=== PATIENT | male | born 1980 | race Caucasian/White ===

== ENCOUNTER 2017-01-16 12:04 | Observation (INO) ==
--- NOTE | 2017-01-16 12:31 | EKG Report ---
Stationary ECG Study [facility] ER Test Date: 01/16/2017 12:16:33 PM Pat Name: ARNAV OH Department: Room: Gender: M Rn Tele: TRAVIS : 1980 Requested by: Curly Jones Order Number: [id number] Reading MD: MARIALUISA CORDERO Intervals [place] Rate: 48 P: 6 IN: 124 QRS: 34 QRSD: 84 T: 38 QT: 425 QTc: 391 Interpretive Statements SINUS BRADYCARDIA Electronically Signed On 01-17-17 16:09:03 CDT by MARIALUISA CORDERO [id number]
--- NOTE | 2017-01-16 12:57 | Emergency Department Note ---
Nancy Gaston Mantricia, am scribing for, and in the presence of, Curly Penaloza MD 12:31. Ca Gaston James D, MD, personally performed the services described in this documentation, ascribed by Nhan Cruz in my presence, and it is both accurate and complete [id number] . Arrival - Arrival Chief Complaint: Chest Pain Stated Complaint: chest pain ED Nursing Triage Note: Transfer from [facility] for further evaluation chest pain. c/o mid-sternal chest pain onset 0400am. Describes as dull. + shortness of breath. +dizziness. Mode of Arrival: Stretcher Limitations: No Limitations Source: Patient Time Seen by Provider: 01/16/17 12:29 - History of Present Illness HPI Narrative: Pt is a 36 y/o white male arriving to ED by EMS as a transfer from [place] with c/o chest pain that onset 0400 this morning. He states that the pain does radiate down his LUE and woke him up from his sleep. Pt has a PMHx of HTN and has a FHx of heart problems. At time of exam, pt states that he is not in pain. No other complaints were reported to ED. Onset (ago): hour(s) Consistency: constant Severity: mild Allergies/Adverse Reactions: Allergies Allergy/AdvReac Type Severity Reaction Status Date / Time No Known Allergies Allergy Verified 01/16/17 12:14 Home Medications: Home Medications Medication Instructions Recorded Confirmed Type Atorvastatin [Lipitor] 10 mg PO DAILY 01/16/17 01/16/17 History Gabapentin [Neurontin] 800 mg PO TID 01/16/17 01/16/17 History Hydrocodone/Acetaminophen [[place] 1 each PO BID PRN 01/16/17 01/16/17 History 10-325 Tablet] Lisinopril 10 mg PO DAILY 01/16/17 01/16/17 History Omeprazole 40 mg PO DAILY 01/16/17 01/16/17 History Review of System - Review of System 12 point system: reviewed and no additional remarkable complaints except as stated - Review of System Constitutional: Absent: chills, diaphoresis, fever Eyes: Absent: pain Respiratory: Absent: cough Cardiovascular: Present: chest pain Gastrointestinal: Absent: abdominal pain, nausea, vomiting, diarrhea Medical,Surgical,& Family Hx - Medical History Cardio: History of: CAD, Hypertension Neurology: History of: Cerebrovascular Accident, Peripheral Neuropathy Endocrine: History of: Dyslipidemia Musculoskeletal: History of: Back/Neck Problems - Surgical History Cardiac Surgeries: Sugical HX of: Cardiac Catheterization ([address] Galindo[address] - Social History Smoking Status: Never smoker Frequency of Alcohol Use: None Type of Drug Use: None Exam Physical Examination: ADULT: GENERAL: This is a well-nourished, well-developed male in no apparent distress. VITAL SIGNS: HEENT: Head is normocephalic and atraumatic. Pupils are equally round and reactive to light. Extraocular movement are intact. Oropharynx is benign with moist mucous membranes. NECK: Neck is soft and supple without tenderness. There are no masses. There is no lymphadenopathy. LUNGS: Lungs are clear to auscultation bilaterally. Chest rises symmetrically. There is no chest wall tenderness. CV: Heart is slow rate regular rhythm without murmurs rubs or gallops. ABDOMEN: Abdomen is soft, non-tender to palpation. There are no abnormal masses palpated. There is no organomegaly. Bowel sounds are present and active. SKIN: Skin is warm and dry. No rash. EXTREMITIES: Patient has full range of motion without tenderness. There is no pedal edema. NEUROLOGIC: Awake, alert, and oriented x4. Cranial nerves II through XII are grossly intact. There are no motorsensory deficits. PSYCHIATRIC: Normal affect. Normal mood. Vital Signs: Vital Signs Temperature 97.5 F L 01/16/17 12:49 Pulse Rate 63 01/16/17 12:49 Respiratory Rate 18 01/16/17 12:49 Blood Pressure 129/68 01/16/17 12:49 O2 Sat by Pulse Oximetry 97 01/16/17 12:04 Course - Consultations Consultation #1: Discussed with Hospitalist and patient will be admitted to their services. Time: 12:40 Results - Labs Lab Results: I have reviewed the patients labs Labs: Lab performed at [facility] and reviewed by me: Troponin less than 0.03 CBC: WBCs 9700, hemoglobin 15.2, hematocrit 44.4, platelet count 199,000 Chemistry: Sodium 144, potassium 4.1, chloride 105, CO2 28, BUN 13, creatinine 0.9, glucose 107, total bilirubin 0.5, total protein 7.1, albumin 4.0, ALT 34, AST 23, alk phos 78 - EKG EKG results: interpreted by ERMD - Impressions EKG: Sinus bradycardia with a rate of 48, normal ST-T waves, normal axis. - Diagnostic Findings Procedure: Chest x-ray: report reviewed by me (Chest x-ray performed that [facility] and read by Dr. Maxwell: Borderline heart size with mild right infrahilar atelectasis.) Disposition Clinical Impression: Chest pain Case discussed with: patient Disposition: Still a Patient Condition: Stable Time of Disposition: 12:55
[2017-01-16] MEDS ORDERED: ACETAMINOPHEN 500 MG TABLET PO STA (13:42)
[2017-01-16] MEDS ORDERED: ACETAMINOPHEN 500 MG TABLET ONE (13:44)
--- NOTE | 2017-01-16 15:16 | Hospitalist History & Physical ---
<Chino Montemayor - Last Filed: 01/16/17 15:29> Assessment and Plan (1) Chest pain Status: Acute Assessment and plan: Admit inpatient observation. Cardiac monitoring. Routine vitals. Serial EKGs and troponins. Stat chest x-ray. CBC/CMP. PT/INR. BNP. Repeat labs in am. Consult cardiology. Current Visit: Yes (2) Hypertension Status: Chronic Assessment and plan: Patient currently stable now; restart home medications. Current Visit: Yes (3) CVA (cerebral vascular accident) Status: Chronic Assessment and plan: History of CVA. Current Visit: Yes (4) Dyslipidemia Status: Chronic Assessment and plan: Lipid panel in the am. Current Visit: Yes History of Present Illness Chief complaint: Chest pain History of present illness: Mr. Del Valle is a 36 year old white male with a history of hypertension, CVA, peripheral neuropathy, dyslipidemia, cardiac catheterization, and back problems that presented to the ED today as a transfer from [place] for further evaluation of chest pain. Patient is accompanied by his and children and they are at the bedside. Patient complains of chest pain that began this morning around 4, waking him out of his sleep. Patient states that the pain started in his midsternal area radiating across his left chest and down his left upper arm. Patient reports associated symptoms of shortness of breath, diaphoresis, and nausea but denies vomiting. Patient states the pain persisted on and off. He took his home medications which includes a full-strength aspirin and the pain persisted. He was seen by his PCP Dr. echevarria referred him to [facility] which point he was transferred here for further evaluation. Presently in the ED the patient complains of intermittent chest pain and a mild headache. Patient reports history of stroke and heart problems. Also reports a family history of heart disease. Patient states that he had an episode similar to this in 2013 at which point he was catheterized by Dr. Cotto at [facility] and transferred services to Dr. Galindo. He stated that at that time he was told he had a blockage of 25%. Initial troponins in the ED were negative. Pt. will be admitted for inpatient observation. Cardiology will be consulted to assist in the management of the patient. Home Medications Medication Instructions Recorded Confirmed Type Aspirin 325 mg PO DAILY 01/16/17 01/16/17 History Atorvastatin [Lipitor] 10 mg PO DAILY 01/16/17 01/16/17 History Gabapentin [Neurontin] 800 mg PO TID 01/16/17 01/16/17 History Hydrocodone/Acetaminophen [[place] 1 each PO BID PRN 01/16/17 01/16/17 History 10-325 Tablet] Lisinopril 10 mg PO DAILY 01/16/17 01/16/17 History Omeprazole 40 mg PO DAILY 01/16/17 01/16/17 History Allergies Allergy/AdvReac Type Severity Reaction Status Date / Time No Known Allergies Allergy Verified 01/16/17 12:14 Medical,Surgical,& Family Hx - Medical History Cardio: History of: CAD, Hypertension Neurology: History of: Cerebrovascular Accident, Peripheral Neuropathy Endocrine: History of: Dyslipidemia Musculoskeletal: History of: Back/Neck Problems - Surgical History Cardiac Surgeries: Sugical HX of: Cardiac Catheterization ([address] Galindo.) - Social History Smoking Status: Never smoker Frequency of Alcohol Use: None Type of Drug Use: None Marital Status: Lives With:: Spouse Functional capacity: independent ambulation - Constitutional Constitutional: Absent: chills, fever(s) - EENT Eyes: Present: loss of vision, requires corrective lense Ears: Absent: decreased hearing Nose, mouth and throat: Present: headache(s) - Cardiovascular Cardiovascular: Present: diaphoresis, dyspnea. Absent: dyspnea on exertion, edema - Gastrointestinal Gastrointestinal: Present: nausea, jaundice. Absent: abdominal pain, vomiting - Genitourinary Genitourinary: Absent: difficulty urinating, hematuria - Neurological Neurological: Absent: confusion, dizziness - Psychiatric Psychiatric: Absent: anxiety, depression Exam - Constitutional Vitals: Period Temp Pulse Resp BP Sys/Morrell Pulse Ox Last 24 Hr 97.5 F-97.5 F 63-63 18-19 129-129/68-68 97 General appearance: no acute distress, over weight - Head Head exam: Present: normal inspection, normocephalic - Eye Eye exam: Present: EOMI. Absent: scleral icterus Pupils: Present: SORIN. Absent: fixed - Neck Neck exam: Present: normal inspection - Respiratory Respiratory exam: Present: clear to auscultation bilaterally. Absent: wheezes - Cardiovascular Cardiovascular exam: Present: bradycardia. Absent: JVD - GI/Abdominal GI/Abdominal exam: Present: normal bowel sounds, soft. Absent: tenderness - Extremities Exam Extremities exam: Present: normal capillary refill, full ROM. Absent: edema - Neurological Exam Neurological exam: Present: alert, oriented X3 - Psychiatric Psychiatric exam: Present: normal affect, normal mood, depressed - Skin Skin exam: Present: normal color, warm, dry <Farzana Ocasio - Last Filed: 01/16/17 18:57> History of Present Illness History of present illness: Patient seen and examined independently of [employer] Montemayor, agree with history, assessment and plan as documented. Patient reports that chest pain is better but still not completely gone. ACS work-up. Serial troponins. Echo Exam - Constitutional Vitals: Period Temp Pulse Resp BP Sys/Morrell Pulse Ox Last 24 Hr 97.5 F-97.5 F 60-63 14-20 101-129/56-68 95-98 Results - Labs CBC & BMP: 01/16/17 12:30 01/16/17 12:30
[2017-01-16 15:35] LABS: Basophils # 0.1 10*3/uL (0.0-0.2); Basophils % 0.5 % (0.0-0.8); Eosinophils # 0.2 10*3/uL (0.0-0.87); Eosinophils % 1.7 % (0.00-10.9); Hematocrit 41.4 VOL% (42.0-52.0); Hemoglobin 14.4 GM/DL (14.0-18.0); Immature Granulocytes % 0.4 %; Immature Granulocytes Absolute 0.04 #; Lymphocytes # 1.9 10*3/uL (1.4-4.0); Lymphocytes % 19.6 % (21.2-54.2); Mean Corpuscular HGB Conc 34.8 GM/DL (32-36); Mean Corpuscular Hemoglobin 30 PG (27-34); Mean Corpuscular Volume 85.7 FL (87-102); Mean Platelet Volume 10.9 FL (9.6-12.0); Monocytes # 0.9 10*3/uL (0.11-0.8); Neutrophils # 6.5 10*3/uL (1.4-7.4); Neutrophils % 68.8 % (38.7-73.9); Platelet Count 197 T/CUMM (130-400); Red Blood Count 4.83 MC/CUMM (3.8-5.5); Red Cell Distribution Width 13.5 % (9.3-17.3); White Blood Count 9.4 T/CUMM (4-12)
[2017-01-16 15:40] LABS: INR 1.1
[2017-01-16 15:45] LABS: Calcium 8.3 MG/DL (8.5-10.1); Magnesium 2.2 MG/DL (1.8-2.4); Osmolality,Calculated 277.4 MOS/KG (273-304); Potassium 4.3 MMOL/L (3.5-5.1)
--- NOTE | 2017-01-16 15:45 | XRay Report ---
Portable chest. Indication: Chest pain. The heart is enlarged. Linear areas of atelectasis are noted within the lung bases. These have worsened compared from earlier today. No pneumothorax. No pleural effusion. Impression: Worsening basilar atelectasis. PROCEDURE INTERPRETED AT [facility] DEPARTMENT OF RADIOLOGY Final Report Signed by: Dr. Mecca Mathew
[2017-01-16] MEDS ORDERED: ACETAMINOPHEN 325 MG TABLET PO PRN (17:00)
[2017-01-16 17:53] LABS: Apearance,Urine CLEAR (Clear); Bilirubin,Urine Negative (Negative); Blood, Urine Negative (Negative); Glucose,Urine (UA) Negative (Negative); Ketones,Urine Negative (Negative); Mucus,Urine Few /LPF (Occasional); Nitrite,Urine Negative (Negative); Protein,Urine Negative; Urine Color Yellow (Yellow); Urine Specific Gravity 1.029 (1.001-1.035); Urine Urobilinogen < 2.0 EU/DL (0.2-1.0); WBC,Urine <1 /HPF (0-6)
[2017-01-16] MEDS: SODIUM CHLORIDE 0.9% 1,000 ML IV SCH (22:11)
[2017-01-16 23:05] LABS: Troponin I Only < 0.015 NG/ML (0.00-0.045)
[2017-01-17] MEDS: SODIUM CHLORIDE 0.9% 1,000 ML IV SCH ×2 (01:17→13:39)
[2017-01-17 02:12] LABS: Troponin I Only < 0.015 NG/ML (0.00-0.045)
[2017-01-17 04:49] LABS: Basophils # 0.1 10*3/uL (0.0-0.2); Basophils % 0.5 % (0.0-0.8); Eosinophils # 0.2 10*3/uL (0.0-0.87); Eosinophils % 1.4 % (0.00-10.9); Hematocrit 38.8 VOL% (42.0-52.0); Hemoglobin 13.5 GM/DL (14.0-18.0); Immature Granulocytes % 0.8 %; Lymphocytes # 1.8 10*3/uL (1.4-4.0); Lymphocytes % 14.5 % (21.2-54.2); Mean Corpuscular HGB Conc 34.8 GM/DL (32-36); Mean Corpuscular Hemoglobin 30 PG (27-34); Mean Corpuscular Volume 85.5 FL (87-102); Mean Platelet Volume 10.5 FL (9.6-12.0); Monocytes % 8.3 % (1.7-12.7); Neutrophils # 9.2 10*3/uL (1.4-7.4); Neutrophils % 74.5 % (38.7-73.9); Platelet Count 181 T/CUMM (130-400); Red Blood Count 4.54 MC/CUMM (3.8-5.5); Red Cell Distribution Width 13.3 % (9.3-17.3); White Blood Count 12.4 T/CUMM (4-12)
[2017-01-17 05:26] LABS: Troponin I Only < 0.015 NG/ML (0.00-0.045)
[2017-01-17 05:35] LABS: Calcium 8.3 MG/DL (8.5-10.1); Osmolality,Calculated 280.3 MOS/KG (273-304); Potassium 4.4 MMOL/L (3.5-5.1); Risk Ratio 4.15; Thyroid Stimulating Hormone 1.35 uIU/ml (0.358-3.74); VLDL CHOLESTEROL 20.8 MG/DL
--- NOTE | 2017-01-17 08:00 | EKG Report ---
Stationary ECG Study [facility] Test Date: 01/17/2017 8:00:39 AM Pat Name: ARNAV OH Department: Room: 220 Gender: M Teenage Babysitter: MARSHALL : 1980 Requested by: Chino Montemayor Order Number: [id number] Reading MD: FABRICIO DOWNEY Intervals [place] Rate: 60 P: 7 HI: 126 QRS: 27 QRSD: 81 T: 27 QT: 398 QTc: 398 Interpretive Statements SINUS RHYTHM at 60 bpm WNL Electronically Signed On 01-18-17 12:13:43 CDT by FABRICIO DOWNEY [id number]
[2017-01-17] MEDS ORDERED: ATORVASTATIN 10 MG TABLET PO SCH (09:00)
[2017-01-17] MEDS ORDERED: PANTOPRAZOLE 40 MG TABLET PO SCH (09:00)
[2017-01-17] MEDS ORDERED: LISINOPRIL 10 MG TABLET PO SCH (09:00)
[2017-01-17 11:36] VITALS: BP 137/78
--- NOTE | 2017-01-17 11:42 | Discharge Summary ---
Hospital Course - Hospital Course Hospital Course: Praveen Del Valle Date of : 78 Patient Status: Observation Attending Provider: Alek Dent Date: 01/17/17 11:41 Initialization Date: 01/17/17 11:41 Mr. Del Valle is a 36 year old white male with a history of hypertension, CVA, peripheral neuropathy, dyslipidemia, cardiac catheterization, and back problems that presented to the ED today as a transfer from [place] for further evaluation of chest pain. Patient is accompanied by his and children and they are at the bedside. Patient complains of chest pain that began this morning around 4, waking him out of his sleep. Patient states that the pain started in his midsternal area radiating across his left chest and down his left upper arm. Patient reports associated symptoms of shortness of breath, diaphoresis, and nausea but denies vomiting. Patient states the pain persisted on and off. He took his home medications which includes a full-strength aspirin and the pain persisted. He was seen by his PCP Dr. echevarria referred him to [facility] which point he was transferred here for further evaluation. Presently in the ED the patient complains of intermittent chest pain and a mild headache. Patient reports history of stroke and heart problems. Also reports a family history of heart disease. Patient states that he had an episode similar to this in 2013 at which point he was catheterized by Dr. Cotto at [place] and transferred services to Dr. Galindo. He stated that at that time he was told he had a blockage of 25%. Initial troponins in the ED were negative. Pt. was admitted for inpatient observation. Cardiology was consulted. Pt.'s chest pain and shortness of breath resolved. Serial enzymes were negative. Cardiology recommended that patient follow up with Dr. Galindo on an outpatient basis. Pt will be discharged to home. Diagnosis - Discharge Diagnosis (1) Chest pain Status: Acute (2) Hypertension Status: Chronic (3) CVA (cerebral vascular accident) Status: Chronic (4) Dyslipidemia Status: Chronic Discharge Plan - Discharge Medications No Action Atorvastatin [Lipitor] 10 mg PO DAILY Omeprazole 40 mg PO DAILY Hydrocodone/Acetaminophen [Morgan 10-325 Tablet] 1 each PO BID PRN PRN Reason: Pain Gabapentin [Neurontin] 800 mg PO TID Lisinopril 10 mg PO DAILY Aspirin 325 mg PO DAILY - Follow Up or Referral - Forms/Instructions Exam - Constitutional Vitals: Period Temp Pulse Resp BP Sys/Morrell Pulse Ox Last 24 Hr 97.3 F-98.0 F 55-79 14-20 100-137/55-78 95-98 Discharge Results Labs on day of discharge: Labs from last 24 hours 01/17/17 01/17/17 01/17/17 04:23 04:23 04:23 WBC RBC Hgb Hct MCV MCH MCHC RDW Plt Count MPV Neut % (Auto) Lymph % (Auto) Hale % (Auto) Eos % (Auto) Baso % (Auto) Neut # (Auto) Lymph # (Auto) Hale # (Auto) Eos # (Auto) Baso # (Auto) Immature Gran % Nucleated RBC % Immature Gran # Nucleated RBCs # INR PT Patient/Control Mix Sodium Potassium Chloride Carbon Dioxide Anion Gap BUN Creatinine GFR Calculation BUN/Creatinine Ratio Glucose Hemoglobin A1c 5.5 Calculated Osmolality Calcium Magnesium Total Creatine Kinase 151 CK-MB (CK-2) < 1.0 Troponin I < 0.015 B-Natriuretic Peptide 9 Triglycerides Cholesterol LDL Cholesterol VLDL Cholesterol HDL Cholesterol Heart Disease Risk Ratio TSH 3rd Generation Urine Color Urine Appearance Urine pH Ur Specific [place] Urine Protein Urine Glucose (UA) Urine Ketones Urine Blood Urine Nitrate Urine Bilirubin Urine Urobilinogen Urine Leukocytes Urine WBC Urine Mucus Ur Culture Indicated? 01/17/17 01/17/17 01/17/17 04:23 04:23 01:11 WBC 12.4 H D RBC 4.54 Hgb 13.5 L Hct 38.8 L MCV 85.5 L MCH 30 MCHC 34.8 RDW 13.3 Plt Count 181 MPV 10.5 Neut % (Auto) 74.5 H Lymph % (Auto) 14.5 L Hale % (Auto) 8.3 Eos % (Auto) 1.4 Baso % (Auto) 0.5 Neut # (Auto) 9.2 H Lymph # (Auto) 1.8 Hale # (Auto) 1.0 H Eos # (Auto) 0.2 Baso # (Auto) 0.1 Immature Gran % 0.8 Nucleated RBC % 0.0 Immature Gran # 0.10 Nucleated RBCs # 0.00 INR PT Patient/Control Mix Sodium 141 Potassium 4.4 Chloride 109 H Carbon Dioxide 25 Anion Gap 11.4 BUN 14 Creatinine 0.90 GFR Calculation 135 BUN/Creatinine Ratio 15.00 Glucose 78 Hemoglobin A1c Calculated Osmolality 280.3 Calcium 8.3 L Magnesium Total Creatine Kinase 131 CK-MB (CK-2) < 1.0 Troponin I < 0.015 B-Natriuretic Peptide Triglycerides 104 Cholesterol 108 LDL Cholesterol 66.0 VLDL Cholesterol 20.8 HDL Cholesterol 26 L Heart Disease Risk Ratio 4.15 TSH 3rd Generation 1.350 Urine Color Urine Appearance Urine pH Ur Specific [place] Urine Protein Urine Glucose (UA) Urine Ketones Urine Blood Urine Nitrate Urine Bilirubin Urine Urobilinogen Urine Leukocytes Urine WBC Urine Mucus Ur Culture Indicated? 01/16/17 01/16/17 01/16/17 21:59 17:49 12:30 WBC RBC Hgb Hct MCV MCH MCHC RDW Plt Count MPV Neut % (Auto) Lymph % (Auto) Hale % (Auto) Eos % (Auto) Baso % (Auto) Neut # (Auto) Lymph # (Auto) Hale # (Auto) Eos # (Auto) Baso # (Auto) Immature Gran % Nucleated RBC % Immature Gran # Nucleated RBCs # INR PT Patient/Control Mix Sodium Potassium Chloride Carbon Dioxide Anion Gap BUN Creatinine GFR Calculation BUN/Creatinine Ratio Glucose Hemoglobin A1c Calculated Osmolality Calcium Magnesium Total Creatine Kinase 125 CK-MB (CK-2) < 1.0 Troponin I < 0.015 B-Natriuretic Peptide 16 Triglycerides Cholesterol LDL Cholesterol VLDL Cholesterol HDL Cholesterol Heart Disease Risk Ratio TSH 3rd Generation Urine Color Yellow Urine Appearance Clear Urine pH 5.0 Ur Specific [place] 1.029 Urine Protein Negative Urine Glucose (UA) Negative Urine Ketones Negative Urine Blood Negative Urine Nitrate Negative Urine Bilirubin Negative Urine Urobilinogen < 2.0 H Urine Leukocytes Negative Urine WBC <1 Urine Mucus Few Ur Culture Indicated? Not indicated 01/16/17 01/16/17 01/16/17 12:30 12:30 12:30 WBC 9.4 RBC 4.83 Hgb 14.4 Hct 41.4 L MCV 85.7 L MCH 30 MCHC 34.8 RDW 13.5 Plt Count 197 MPV 10.9 Neut % (Auto) 68.8 Lymph % (Auto) 19.6 L Hale % (Auto) 9.0 Eos % (Auto) 1.7 Baso % (Auto) 0.5 Neut # (Auto) 6.5 Lymph # (Auto) 1.9 Hale # (Auto) 0.9 H Eos # (Auto) 0.2 Baso # (Auto) 0.1 Immature Gran % 0.4 Nucleated RBC % 0.0 Immature Gran # 0.04 Nucleated RBCs # 0.00 INR 1.1 PT Patient/Control Mix 12.0 Sodium 140 Potassium 4.3 Chloride 109 H Carbon Dioxide 24 Anion Gap 11.3 BUN 13 Creatinine 0.70 GFR Calculation 150 BUN/Creatinine Ratio 18.00 Glucose 87 Hemoglobin A1c Calculated Osmolality 277.4 Calcium 8.3 L Magnesium 2.2 Total Creatine Kinase CK-MB (CK-2) Troponin I B-Natriuretic Peptide Triglycerides Cholesterol LDL Cholesterol VLDL Cholesterol HDL Cholesterol Heart Disease Risk Ratio TSH 3rd Generation Urine Color Urine Appearance Urine pH Ur Specific [place] Urine Protein Urine Glucose (UA) Urine Ketones Urine Blood Urine Nitrate Urine Bilirubin Urine Urobilinogen Urine Leukocytes Urine WBC Urine Mucus Ur Culture Indicated? 01/16/17 12:30 WBC RBC Hgb Hct MCV MCH MCHC RDW Plt Count MPV Neut % (Auto) Lymph % (Auto) Hale % (Auto) Eos % (Auto) Baso % (Auto) Neut # (Auto) Lymph # (Auto) Hale # (Auto) Eos # (Auto) Baso # (Auto) Immature Gran % Nucleated RBC % Immature Gran # Nucleated RBCs # INR PT Patient/Control Mix Sodium Potassium Chloride Carbon Dioxide Anion Gap BUN Creatinine GFR Calculation BUN/Creatinine Ratio Glucose Hemoglobin A1c Calculated Osmolality Calcium Magnesium Total Creatine Kinase CK-MB (CK-2) Troponin I < 0.015 B-Natriuretic Peptide Triglycerides Cholesterol LDL Cholesterol VLDL Cholesterol HDL Cholesterol Heart Disease Risk Ratio TSH 3rd Generation Urine Color Urine Appearance Urine pH Ur Specific [place] Urine Protein Urine Glucose (UA) Urine Ketones Urine Blood Urine Nitrate Urine Bilirubin Urine Urobilinogen Urine Leukocytes Urine WBC Urine Mucus Ur Culture Indicated? DS: Provider Date of admission: 01/16/17 12:58 Primary care physician: Manjit Clark MD Attending physician on admission: Farzana Ocasio MD Consults: 01/16/17 17:00 Consult to Physician [CONS] Routine Comment: chest pain/hx of blockage Consulting Provider: Rafiq Son When should Consulting Provider be notified: In am Person Notified: CIS Date Notified: 01/16/17 Time Notified: 17:06 Discharging clinician: Chino Montemayor NP Diagnosis - Discharge Diagnosis (1) Chest pain Status: Acute (2) Hypertension Status: Chronic (3) CVA (cerebral vascular accident) Status: Chronic (4) Dyslipidemia Status: Chronic Discharge Plan - Discharge Data Disposition: Disch To Home/Self Care - Discharge Medications Continue Atorvastatin [Lipitor] 10 mg PO DAILY Omeprazole 40 mg PO DAILY Hydrocodone/Acetaminophen [Morgan 10-325 Tablet] 1 each PO BID PRN PRN Reason: Pain Gabapentin [Neurontin] 800 mg PO TID Lisinopril 10 mg PO DAILY Aspirin 325 mg PO DAILY - Follow Up or Referral - Forms/Instructions Forms: Acute Care Work/School Release Instructions: Chest Pain (DC) Exam - Constitutional Vitals: Period Temp Pulse Resp BP Sys/Morrell Pulse Ox Last 24 Hr 97.3 F-98.0 F 55-79 14-20 100-137/55-78 95-98 Discharge Results Labs on day of discharge: Labs from last 24 hours 01/17/17 01/17/17 01/17/17 04:23 04:23 04:23 WBC RBC Hgb Hct MCV MCH MCHC RDW Plt Count MPV Neut % (Auto) Lymph % (Auto) Hale % (Auto) Eos % (Auto) Baso % (Auto) Neut # (Auto) Lymph # (Auto) Hale # (Auto) Eos # (Auto) Baso # (Auto) Immature Gran % Nucleated RBC % Immature Gran # Nucleated RBCs # INR PT Patient/Control Mix Sodium Potassium Chloride Carbon Dioxide Anion Gap BUN Creatinine GFR Calculation BUN/Creatinine Ratio Glucose Hemoglobin A1c 5.5 Calculated Osmolality Calcium Magnesium Total Creatine Kinase 151 CK-MB (CK-2) < 1.0 Troponin I < 0.015 B-Natriuretic Peptide 9 Triglycerides Cholesterol LDL Cholesterol VLDL Cholesterol HDL Cholesterol Heart Disease Risk Ratio TSH 3rd Generation Urine Color Urine Appearance Urine pH Ur Specific [place] Urine Protein Urine Glucose (UA) Urine Ketones Urine Blood Urine Nitrate Urine Bilirubin Urine Urobilinogen Urine Leukocytes Urine WBC Urine Mucus Ur Culture Indicated? 01/17/17 01/17/17 01/17/17 04:23 04:23 01:11 WBC 12.4 H D RBC 4.54 Hgb 13.5 L Hct 38.8 L MCV 85.5 L MCH 30 MCHC 34.8 RDW 13.3 Plt Count 181 MPV 10.5 Neut % (Auto) 74.5 H Lymph % (Auto) 14.5 L Hale % (Auto) 8.3 Eos % (Auto) 1.4 Baso % (Auto) 0.5 Neut # (Auto) 9.2 H Lymph # (Auto) 1.8 Hale # (Auto) 1.0 H Eos # (Auto) 0.2 Baso # (Auto) 0.1 Immature Gran % 0.8 Nucleated RBC % 0.0 Immature Gran # 0.10 Nucleated RBCs # 0.00 INR PT Patient/Control Mix Sodium 141 Potassium 4.4 Chloride 109 H Carbon Dioxide 25 Anion Gap 11.4 BUN 14 Creatinine 0.90 GFR Calculation 135 BUN/Creatinine Ratio 15.00 Glucose 78 Hemoglobin A1c Calculated Osmolality 280.3 Calcium 8.3 L Magnesium Total Creatine Kinase 131 CK-MB (CK-2) < 1.0 Troponin I < 0.015 B-Natriuretic Peptide Triglycerides 104 Cholesterol 108 LDL Cholesterol 66.0 VLDL Cholesterol 20.8 HDL Cholesterol 26 L Heart Disease Risk Ratio 4.15 TSH 3rd Generation 1.350 Urine Color Urine Appearance Urine pH Ur Specific [place] Urine Protein Urine Glucose (UA) Urine Ketones Urine Blood Urine Nitrate Urine Bilirubin Urine Urobilinogen Urine Leukocytes Urine WBC Urine Mucus Ur Culture Indicated? 01/16/17 01/16/17 01/16/17 21:59 17:49 12:30 WBC RBC Hgb Hct MCV MCH MCHC RDW Plt Count MPV Neut % (Auto) Lymph % (Auto) Hale % (Auto) Eos % (Auto) Baso % (Auto) Neut # (Auto) Lymph # (Auto) Hale # (Auto) Eos # (Auto) Baso # (Auto) Immature Gran % Nucleated RBC % Immature Gran # Nucleated RBCs # INR PT Patient/Control Mix Sodium Potassium Chloride Carbon Dioxide Anion Gap BUN Creatinine GFR Calculation BUN/Creatinine Ratio Glucose Hemoglobin A1c Calculated Osmolality Calcium Magnesium Total Creatine Kinase 125 CK-MB (CK-2) < 1.0 Troponin I < 0.015 B-Natriuretic Peptide 16 Triglycerides Cholesterol LDL Cholesterol VLDL Cholesterol HDL Cholesterol Heart Disease Risk Ratio TSH 3rd Generation Urine Color Yellow Urine Appearance Clear Urine pH 5.0 Ur Specific [place] 1.029 Urine Protein Negative Urine Glucose (UA) Negative Urine Ketones Negative Urine Blood Negative Urine Nitrate Negative Urine Bilirubin Negative Urine Urobilinogen < 2.0 H Urine Leukocytes Negative Urine WBC <1 Urine Mucus Few Ur Culture Indicated? Not indicated 01/16/17 01/16/17 01/16/17 12:30 12:30 12:30 WBC 9.4 RBC 4.83 Hgb 14.4 Hct 41.4 L MCV 85.7 L MCH 30 MCHC 34.8 RDW 13.5 Plt Count 197 MPV 10.9 Neut % (Auto) 68.8 Lymph % (Auto) 19.6 L Hale % (Auto) 9.0 Eos % (Auto) 1.7 Baso % (Auto) 0.5 Neut # (Auto) 6.5 Lymph # (Auto) 1.9 Hale # (Auto) 0.9 H Eos # (Auto) 0.2 Baso # (Auto) 0.1 Immature Gran % 0.4 Nucleated RBC % 0.0 Immature Gran # 0.04 Nucleated RBCs # 0.00 INR 1.1 PT Patient/Control Mix 12.0 Sodium 140 Potassium 4.3 Chloride 109 H Carbon Dioxide 24 Anion Gap 11.3 BUN 13 Creatinine 0.70 GFR Calculation 150 BUN/Creatinine Ratio 18.00 Glucose 87 Hemoglobin A1c Calculated Osmolality 277.4 Calcium 8.3 L Magnesium 2.2 Total Creatine Kinase CK-MB (CK-2) Troponin I B-Natriuretic Peptide Triglycerides Cholesterol LDL Cholesterol VLDL Cholesterol HDL Cholesterol Heart Disease Risk Ratio TSH 3rd Generation Urine Color Urine Appearance Urine pH Ur Specific [place] Urine Protein Urine Glucose (UA) Urine Ketones Urine Blood Urine Nitrate Urine Bilirubin Urine Urobilinogen Urine Leukocytes Urine WBC Urine Mucus Ur Culture Indicated? 01/16/17 12:30 WBC RBC Hgb Hct MCV MCH MCHC RDW Plt Count MPV Neut % (Auto) Lymph % (Auto) Hale % (Auto) Eos % (Auto) Baso % (Auto) Neut # (Auto) Lymph # (Auto) Hale # (Auto) Eos # (Auto) Baso # (Auto) Immature Gran % Nucleated RBC % Immature Gran # Nucleated RBCs # INR PT Patient/Control Mix Sodium Potassium Chloride Carbon Dioxide Anion Gap BUN Creatinine GFR Calculation BUN/Creatinine Ratio Glucose Hemoglobin A1c Calculated Osmolality Calcium Magnesium Total Creatine Kinase CK-MB (CK-2) Troponin I < 0.015 B-Natriuretic Peptide Triglycerides Cholesterol LDL Cholesterol VLDL Cholesterol HDL Cholesterol Heart Disease Risk Ratio TSH 3rd Generation Urine Color Urine Appearance Urine pH Ur Specific [place] Urine Protein Urine Glucose (UA) Urine Ketones Urine Blood Urine Nitrate Urine Bilirubin Urine Urobilinogen Urine Leukocytes Urine WBC Urine Mucus Ur Culture Indicated? DS: Provider Date of admission: 01/16/17 12:58 Primary care physician: Manjit Clark MD Attending physician on admission: Farzana Ocasio MD Consults: 01/16/17 17:00 Consult to Physician [CONS] Routine Comment: chest pain/hx of blockage Consulting Provider: Rafiq Son When should Consulting Provider be notified: In am Person Notified: CIS Date Notified: 01/16/17 Time Notified: 17:06 Discharging clinician: Chino Montemayor NP
--- NOTE | 2017-01-17 13:09 | Discharge Summary ---
Hospital Course - Hospital Course Hospital Course: Praveen Del Valle Date of : 78 Patient Status: Observation Attending Provider: Alek Dent Date: 01/17/17 11:41 Initialization Date: 01/17/17 11:41 Diagnosis - Discharge Diagnosis (1) Chest pain Status: Acute (2) Hypertension Status: Chronic (3) CVA (cerebral vascular accident) Status: Chronic (4) Dyslipidemia Status: Chronic Discharge Plan - Discharge Medications No Action Atorvastatin [Lipitor] 10 mg PO DAILY Omeprazole 40 mg PO DAILY Hydrocodone/Acetaminophen [Fults 10-325 Tablet] 1 each PO BID PRN PRN Reason: Pain Gabapentin [Neurontin] 800 mg PO TID Lisinopril 10 mg PO DAILY Aspirin 325 mg PO DAILY - Follow Up or Referral - Forms/Instructions Exam - Constitutional Vitals: Period Temp Pulse Resp BP Sys/Morrell Pulse Ox Last 24 Hr 97.3 F-98.0 F 55-79 14-20 100-137/55-78 95-98 Discharge Results Labs on day of discharge: Labs from last 24 hours 01/17/17 01/17/17 01/17/17 04:23 04:23 04:23 WBC RBC Hgb Hct MCV MCH MCHC RDW Plt Count MPV Neut % (Auto) Lymph % (Auto) Haines % (Auto) Eos % (Auto) Baso % (Auto) Neut # (Auto) Lymph # (Auto) Haines # (Auto) Eos # (Auto) Baso # (Auto) Immature Gran % Nucleated RBC % Immature Gran # Nucleated RBCs # INR PT Patient/Control Mix Sodium Potassium Chloride Carbon Dioxide Anion Gap BUN Creatinine GFR Calculation BUN/Creatinine Ratio Glucose Hemoglobin A1c 5.5 Calculated Osmolality Calcium Magnesium Total Creatine Kinase 151 CK-MB (CK-2) < 1.0 Troponin I < 0.015 B-Natriuretic Peptide 9 Triglycerides Cholesterol LDL Cholesterol VLDL Cholesterol HDL Cholesterol Heart Disease Risk Ratio TSH 3rd Generation Urine Color Urine Appearance Urine pH Ur Specific [place] Urine Protein Urine Glucose (UA) Urine Ketones Urine Blood Urine Nitrate Urine Bilirubin Urine Urobilinogen Urine Leukocytes Urine WBC Urine Mucus Ur Culture Indicated? 01/17/17 01/17/17 01/17/17 04:23 04:23 01:11 WBC 12.4 H D RBC 4.54 Hgb 13.5 L Hct 38.8 L MCV 85.5 L MCH 30 MCHC 34.8 RDW 13.3 Plt Count 181 MPV 10.5 Neut % (Auto) 74.5 H Lymph % (Auto) 14.5 L Haines % (Auto) 8.3 Eos % (Auto) 1.4 Baso % (Auto) 0.5 Neut # (Auto) 9.2 H Lymph # (Auto) 1.8 Haines # (Auto) 1.0 H Eos # (Auto) 0.2 Baso # (Auto) 0.1 Immature Gran % 0.8 Nucleated RBC % 0.0 Immature Gran # 0.10 Nucleated RBCs # 0.00 INR PT Patient/Control Mix Sodium 141 Potassium 4.4 Chloride 109 H Carbon Dioxide 25 Anion Gap 11.4 BUN 14 Creatinine 0.90 GFR Calculation 135 BUN/Creatinine Ratio 15.00 Glucose 78 Hemoglobin A1c Calculated Osmolality 280.3 Calcium 8.3 L Magnesium Total Creatine Kinase 131 CK-MB (CK-2) < 1.0 Troponin I < 0.015 B-Natriuretic Peptide Triglycerides 104 Cholesterol 108 LDL Cholesterol 66.0 VLDL Cholesterol 20.8 HDL Cholesterol 26 L Heart Disease Risk Ratio 4.15 TSH 3rd Generation 1.350 Urine Color Urine Appearance Urine pH Ur Specific [place] Urine Protein Urine Glucose (UA) Urine Ketones Urine Blood Urine Nitrate Urine Bilirubin Urine Urobilinogen Urine Leukocytes Urine WBC Urine Mucus Ur Culture Indicated? 01/16/17 01/16/17 01/16/17 21:59 17:49 12:30 WBC RBC Hgb Hct MCV MCH MCHC RDW Plt Count MPV Neut % (Auto) Lymph % (Auto) Haines % (Auto) Eos % (Auto) Baso % (Auto) Neut # (Auto) Lymph # (Auto) Haines # (Auto) Eos # (Auto) Baso # (Auto) Immature Gran % Nucleated RBC % Immature Gran # Nucleated RBCs # INR PT Patient/Control Mix Sodium Potassium Chloride Carbon Dioxide Anion Gap BUN Creatinine GFR Calculation BUN/Creatinine Ratio Glucose Hemoglobin A1c Calculated Osmolality Calcium Magnesium Total Creatine Kinase 125 CK-MB (CK-2) < 1.0 Troponin I < 0.015 B-Natriuretic Peptide 16 Triglycerides Cholesterol LDL Cholesterol VLDL Cholesterol HDL Cholesterol Heart Disease Risk Ratio TSH 3rd Generation Urine Color Yellow Urine Appearance Clear Urine pH 5.0 Ur Specific [place] 1.029 Urine Protein Negative Urine Glucose (UA) Negative Urine Ketones Negative Urine Blood Negative Urine Nitrate Negative Urine Bilirubin Negative Urine Urobilinogen < 2.0 H Urine Leukocytes Negative Urine WBC <1 Urine Mucus Few Ur Culture Indicated? Not indicated 01/16/17 01/16/17 01/16/17 12:30 12:30 12:30 WBC 9.4 RBC 4.83 Hgb 14.4 Hct 41.4 L MCV 85.7 L MCH 30 MCHC 34.8 RDW 13.5 Plt Count 197 MPV 10.9 Neut % (Auto) 68.8 Lymph % (Auto) 19.6 L Haines % (Auto) 9.0 Eos % (Auto) 1.7 Baso % (Auto) 0.5 Neut # (Auto) 6.5 Lymph # (Auto) 1.9 Haines # (Auto) 0.9 H Eos # (Auto) 0.2 Baso # (Auto) 0.1 Immature Gran % 0.4 Nucleated RBC % 0.0 Immature Gran # 0.04 Nucleated RBCs # 0.00 INR 1.1 PT Patient/Control Mix 12.0 Sodium 140 Potassium 4.3 Chloride 109 H Carbon Dioxide 24 Anion Gap 11.3 BUN 13 Creatinine 0.70 GFR Calculation 150 BUN/Creatinine Ratio 18.00 Glucose 87 Hemoglobin A1c Calculated Osmolality 277.4 Calcium 8.3 L Magnesium 2.2 Total Creatine Kinase CK-MB (CK-2) Troponin I B-Natriuretic Peptide Triglycerides Cholesterol LDL Cholesterol VLDL Cholesterol HDL Cholesterol Heart Disease Risk Ratio TSH 3rd Generation Urine Color Urine Appearance Urine pH Ur Specific [place] Urine Protein Urine Glucose (UA) Urine Ketones Urine Blood Urine Nitrate Urine Bilirubin Urine Urobilinogen Urine Leukocytes Urine WBC Urine Mucus Ur Culture Indicated? 01/16/17 12:30 WBC RBC Hgb Hct MCV MCH MCHC RDW Plt Count MPV Neut % (Auto) Lymph % (Auto) Haines % (Auto) Eos % (Auto) Baso % (Auto) Neut # (Auto) Lymph # (Auto) Haines # (Auto) Eos # (Auto) Baso # (Auto) Immature Gran % Nucleated RBC % Immature Gran # Nucleated RBCs # INR PT Patient/Control Mix Sodium Potassium Chloride Carbon Dioxide Anion Gap BUN Creatinine GFR Calculation BUN/Creatinine Ratio Glucose Hemoglobin A1c Calculated Osmolality Calcium Magnesium Total Creatine Kinase CK-MB (CK-2) Troponin I < 0.015 B-Natriuretic Peptide Triglycerides Cholesterol LDL Cholesterol VLDL Cholesterol HDL Cholesterol Heart Disease Risk Ratio TSH 3rd Generation Urine Color Urine Appearance Urine pH Ur Specific [place] Urine Protein Urine Glucose (UA) Urine Ketones Urine Blood Urine Nitrate Urine Bilirubin Urine Urobilinogen Urine Leukocytes Urine WBC Urine Mucus Ur Culture Indicated? DS: Provider Date of admission: 01/16/17 12:58 Primary care physician: Manjit Clark MD Attending physician on admission: Farzana Ocasio MD Consults: 01/16/17 17:00 Consult to Physician [CONS] Routine Comment: chest pain/hx of blockage Consulting Provider: Rafiq Son When should Consulting Provider be notified: In am Person Notified: CIS Date Notified: 01/16/17 Time Notified: 17:06 Discharging clinician: Chino Montemayor NP Discharge Plan - Discharge Data Disposition: Disch To Home/Self Care Condition at Discharge: Stable Discharge Diet: heart healthy Activity: resume usual activities as tolerated Hygiene: no restrictions Weight Bearing at Discharge: weight bear as tolerated Driving: not until seen by doctor Contact your physician if you experience:: Difficulty voiding, Nausea/Vomiting, Shortness of breath, pain uncontrolled by pain medications - Discharge Medications Continue Atorvastatin [Lipitor] 10 mg PO DAILY Omeprazole 40 mg PO DAILY Hydrocodone/Acetaminophen [Fults 10-325 Tablet] 1 each PO BID PRN PRN Reason: Pain Gabapentin [Neurontin] 800 mg PO TID Lisinopril 10 mg PO DAILY Aspirin 325 mg PO DAILY - Follow Up or Referral - Forms/Instructions Exam - Constitutional Vitals: Period Temp Pulse Resp BP Sys/Morrell Pulse Ox Last 24 Hr 97.3 F-98.0 F 55-79 14-20 100-137/55-78 95-98 General appearance: normal weight, no acute distress - Eye Eye exam: Present: EOMI Pupils: Present: SORIN - ENT ENT exam: Present: normal oropharynx - Respiratory Respiratory exam: Present: clear to auscultation bilaterally - Cardiovascular Cardiovascular exam: Present: regular rate and rhythm - GI/Abdominal GI/Abdominal exam: Present: normal bowel sounds, soft - Extremities Exam Extremities exam: Present: full ROM - Neurological Exam Neurological exam: Present: alert, oriented X3, CN II-XII intact - Psychiatric Psychiatric exam: Present: normal affect, normal mood - Skin Skin exam: Present: normal color, warm, dry Discharge Results Labs on day of discharge: Labs from last 24 hours 07/21/17 07/21/17 07/21/17 04:23 04:23 04:23 WBC RBC Hgb Hct MCV MCH MCHC RDW Plt Count MPV Neut % (Auto) Lymph % (Auto) Haines % (Auto) Eos % (Auto) Baso % (Auto) Neut # (Auto) Lymph # (Auto) Haines # (Auto) Eos # (Auto) Baso # (Auto) Immature Gran % Nucleated RBC % Immature Gran # Nucleated RBCs # INR PT Patient/Control Mix Sodium Potassium Chloride Carbon Dioxide Anion Gap BUN Creatinine GFR Calculation BUN/Creatinine Ratio Glucose Hemoglobin A1c 5.5 Calculated Osmolality Calcium Magnesium Total Creatine Kinase 151 CK-MB (CK-2) < 1.0 Troponin I < 0.015 B-Natriuretic Peptide 9 Triglycerides Cholesterol LDL Cholesterol VLDL Cholesterol HDL Cholesterol Heart Disease Risk Ratio TSH 3rd Generation Urine Color Urine Appearance Urine pH Ur Specific [place] Urine Protein Urine Glucose (UA) Urine Ketones Urine Blood Urine Nitrate Urine Bilirubin Urine Urobilinogen Urine Leukocytes Urine WBC Urine Mucus Ur Culture Indicated? 01/17/17 01/17/17 01/17/17 04:23 04:23 01:11 WBC 12.4 H D RBC 4.54 Hgb 13.5 L Hct 38.8 L MCV 85.5 L MCH 30 MCHC 34.8 RDW 13.3 Plt Count 181 MPV 10.5 Neut % (Auto) 74.5 H Lymph % (Auto) 14.5 L Haines % (Auto) 8.3 Eos % (Auto) 1.4 Baso % (Auto) 0.5 Neut # (Auto) 9.2 H Lymph # (Auto) 1.8 Haines # (Auto) 1.0 H Eos # (Auto) 0.2 Baso # (Auto) 0.1 Immature Gran % 0.8 Nucleated RBC % 0.0 Immature Gran # 0.10 Nucleated RBCs # 0.00 INR PT Patient/Control Mix Sodium 141 Potassium 4.4 Chloride 109 H Carbon Dioxide 25 Anion Gap 11.4 BUN 14 Creatinine 0.90 GFR Calculation 135 BUN/Creatinine Ratio 15.00 Glucose 78 Hemoglobin A1c Calculated Osmolality 280.3 Calcium 8.3 L Magnesium Total Creatine Kinase 131 CK-MB (CK-2) < 1.0 Troponin I < 0.015 B-Natriuretic Peptide Triglycerides 104 Cholesterol 108 LDL Cholesterol 66.0 VLDL Cholesterol 20.8 HDL Cholesterol 26 L Heart Disease Risk Ratio 4.15 TSH 3rd Generation 1.350 Urine Color Urine Appearance Urine pH Ur Specific [place] Urine Protein Urine Glucose (UA) Urine Ketones Urine Blood Urine Nitrate Urine Bilirubin Urine Urobilinogen Urine Leukocytes Urine WBC Urine Mucus Ur Culture Indicated? 01/16/17 01/16/17 01/16/17 21:59 17:49 12:30 WBC RBC Hgb Hct MCV MCH MCHC RDW Plt Count MPV Neut % (Auto) Lymph % (Auto) Haines % (Auto) Eos % (Auto) Baso % (Auto) Neut # (Auto) Lymph # (Auto) Haines # (Auto) Eos # (Auto) Baso # (Auto) Immature Gran % Nucleated RBC % Immature Gran # Nucleated RBCs # INR PT Patient/Control Mix Sodium Potassium Chloride Carbon Dioxide Anion Gap BUN Creatinine GFR Calculation BUN/Creatinine Ratio Glucose Hemoglobin A1c Calculated Osmolality Calcium Magnesium Total Creatine Kinase 125 CK-MB (CK-2) < 1.0 Troponin I < 0.015 B-Natriuretic Peptide 16 Triglycerides Cholesterol LDL Cholesterol VLDL Cholesterol HDL Cholesterol Heart Disease Risk Ratio TSH 3rd Generation Urine Color Yellow Urine Appearance Clear Urine pH 5.0 Ur Specific [place] 1.029 Urine Protein Negative Urine Glucose (UA) Negative Urine Ketones Negative Urine Blood Negative Urine Nitrate Negative Urine Bilirubin Negative Urine Urobilinogen < 2.0 H Urine Leukocytes Negative Urine WBC <1 Urine Mucus Few Ur Culture Indicated? Not indicated 01/16/17 01/16/17 01/16/17 12:30 12:30 12:30 WBC 9.4 RBC 4.83 Hgb 14.4 Hct 41.4 L MCV 85.7 L MCH 30 MCHC 34.8 RDW 13.5 Plt Count 197 MPV 10.9 Neut % (Auto) 68.8 Lymph % (Auto) 19.6 L Haines % (Auto) 9.0 Eos % (Auto) 1.7 Baso % (Auto) 0.5 Neut # (Auto) 6.5 Lymph # (Auto) 1.9 Haines # (Auto) 0.9 H Eos # (Auto) 0.2 Baso # (Auto) 0.1 Immature Gran % 0.4 Nucleated RBC % 0.0 Immature Gran # 0.04 Nucleated RBCs # 0.00 INR 1.1 PT Patient/Control Mix 12.0 Sodium 140 Potassium 4.3 Chloride 109 H Carbon Dioxide 24 Anion Gap 11.3 BUN 13 Creatinine 0.70 GFR Calculation 150 BUN/Creatinine Ratio 18.00 Glucose 87 Hemoglobin A1c Calculated Osmolality 277.4 Calcium 8.3 L Magnesium 2.2 Total Creatine Kinase CK-MB (CK-2) Troponin I B-Natriuretic Peptide Triglycerides Cholesterol LDL Cholesterol VLDL Cholesterol HDL Cholesterol Heart Disease Risk Ratio TSH 3rd Generation Urine Color Urine Appearance Urine pH Ur Specific [place] Urine Protein Urine Glucose (UA) Urine Ketones Urine Blood Urine Nitrate Urine Bilirubin Urine Urobilinogen Urine Leukocytes Urine WBC Urine Mucus Ur Culture Indicated? 01/16/17 12:30 WBC RBC Hgb Hct MCV MCH MCHC RDW Plt Count MPV Neut % (Auto) Lymph % (Auto) Haines % (Auto) Eos % (Auto) Baso % (Auto) Neut # (Auto) Lymph # (Auto) Haines # (Auto) Eos # (Auto) Baso # (Auto) Immature Gran % Nucleated RBC % Immature Gran # Nucleated RBCs # INR PT Patient/Control Mix Sodium Potassium Chloride Carbon Dioxide Anion Gap BUN Creatinine GFR Calculation BUN/Creatinine Ratio Glucose Hemoglobin A1c Calculated Osmolality Calcium Magnesium Total Creatine Kinase CK-MB (CK-2) Troponin I < 0.015 B-Natriuretic Peptide Triglycerides Cholesterol LDL Cholesterol VLDL Cholesterol HDL Cholesterol Heart Disease Risk Ratio TSH 3rd Generation Urine Color Urine Appearance Urine pH Ur Specific [place] Urine Protein Urine Glucose (UA) Urine Ketones Urine Blood Urine Nitrate Urine Bilirubin Urine Urobilinogen Urine Leukocytes Urine WBC Urine Mucus Ur Culture Indicated? DS: Provider Date of admission: 01/16/17 12:58 Primary care physician: Manjit Clark MD Attending physician on admission: Farzana Ocasio MD Consults: 01/16/17 17:00 Consult to Physician [CONS] Routine Comment: chest pain/hx of blockage Consulting Provider: Rafiq Son When should Consulting Provider be notified: In am Person Notified: CIS Date Notified: 01/16/17 Time Notified: 17:06 Discharging clinician: Alek Dent MD
--- NOTE | 2017-01-17 13:48 | Cardiology Consult Note ---
Alek, Lali Caballero RN, am scribing for, and in the presence of, Ayan Jordan MD 13:48. Assessment and Plan - Time spent with patient Time spent with patient: Greater than 30 minutes (Due to assessment, planning, documentation, and medication review) (1) Chest pain Status: Acute Assessment and plan: The patient had some general atypical chest pain symptoms. His cardiac enzymes and EKGs are benign. Given the fact that his symptoms have resolved and his screening was low risk I think he could be discharged home. I would like for him to be scheduled for a follow-up with Dr. Galindo for possible outpatient cardiac ischemic screen. Current Visit: Yes (2) CVA (cerebral vascular accident) Status: Chronic Assessment and plan: No residual deficit status post CVA in 2015. 2D echo in 2014 revealed no embolic source for neurological complaint. He takes ASA 325 mg daily. Current Visit: Yes (3) Dyslipidemia Status: Chronic Assessment and plan: Fasting lipid panel this morning unremarkable. Continue atorvastatin. Current Visit: Yes (4) Hypertension Status: Chronic Assessment and plan: Patient was borderline hypotensive yesterday afternoon while in the ER and after arrival to the floor. He did receive a 1 L IV fluid bolus and is being maintained with IV fluid infusion this morning. BP is improved today. Continue antihypertensive regimen. Current Visit: Yes History of Present Illness - Data of Consult Patient: new to practice (Followed in the past by Dr. Galindo) Consult date: 01/17/17 Requesting Physician: Farzana Ocasio - Consult Narrative Reason for consult: CP History of present illness: PRIMARY DIRECTOR INTERNAL AUDIT: DR. GALINDO Mr. Del Valle is a 36 year old male with risk factors significant for: Hypertension , hyperlipidemia, former tobacco use, family history of premature CAD. Patient quit smoking 3 years ago per his report. He does have a known history of mild CAD per cardiac catheterization in [address] De Jesus at [place], but he did not have significant or fixed CAD requiring PCI. Past medical history includes CVA in January 2015, lumbar sacral disease, and GERD. Echocardiogram in 2014 at time of CVA revealed normal LV systolic function, EF 60-65%, no significant valvular disease, and no embolism identified. Patient was admitted to [facility] as transfer from [facility] for further evaluation of chest pain with associated shortness of breath and dizziness. EKG and cardiac enzymes benign for acute finding. Chest x-ray shows bibasilar atelectasis. Cardiology is now consulted for evaluation of chest pain. This morning, Mr. Del Valle is awake and alert and without acute distress or need noted. Denies chest pain or shortness of breath this morning. Reports that yesterday morning, he was awakened from sleep with midsternal chest pain radiating into the left arm. He describes his chest pain as a "heavy pressure" and admits to dizziness, shortness of breath, and diaphoresis with these episodes. No aggravating or alleviating factors. Reports this pain waxed and waned throughout the day. He was seen by his PCP Dr. Mendiola yesterday afternoon for these symptoms, was sent to [facility] ER for rule out of acute [place], and subsequently transferred to [facility]. Patient also reports that he had a headache for most of the day yesterday also, but this is been relieved this morning since he has received medication for this. Denies any recent exertional chest pain or dyspnea. No palpitations, presyncope, or syncope. Denies recent orthopnea, PND, or lower extremity edema. BP 133/65. EKG and telemetry monitoring demonstrates sinus rhythm, occasional PVC, no overt ectopy or sustained dysrhythmia. WBC 12,400. Serial cardiac biomarkers are normal. FLP this morning unremarkable. TSH normal. Electrolytes and renal function are within acceptable range. Current Medications Acetaminophen (Tylenol Tab) 650 mg PO Q4H PRN PRN Reason: Fever, Headache, Mild Pain Hydrocodone Bitart/Acetaminophen ([place] 5-325) 1 tablet PO Q4H PRN PRN Reason: Pain Mild (1-3) Last Admin: 01/17/17 06:20 Dose: 1 tablet Atorvastatin Calcium (Lipitor) 10 mg PO DAILY [facility] Sodium Chloride (Ns) 1,000 mls @ 75 mls/hr IV .[id number] MEGAN Last Admin: 01/17/17 01:17 Dose: 75 mls/hr Lisinopril (Prinivil) 10 mg PO DAILY [facility] Pantoprazole Sodium (Protonix Tab) 40 mg PO DAILY [facility] CC: Alek Dent MD - Home Medications and Allergies Home Medications: Home Medications Medication Instructions Recorded Confirmed Type Aspirin 325 mg PO DAILY 01/16/17 01/16/17 History Atorvastatin [Lipitor] 10 mg PO DAILY 01/16/17 01/16/17 History Gabapentin [Neurontin] 800 mg PO TID 01/16/17 01/16/17 History Hydrocodone/Acetaminophen [[place] 1 each PO BID PRN 01/16/17 01/16/17 History 10-325 Tablet] Lisinopril 10 mg PO DAILY 01/16/17 01/16/17 History Omeprazole 40 mg PO DAILY 01/16/17 01/16/17 History Allergies/Adverse Reactions: Allergies Allergy/AdvReac Type Severity Reaction Status Date / Time No Known Allergies Allergy Verified 01/16/17 12:14 - Constitutional Constitutional: Absent: anorexia, chills, daytime sleepiness, fatigue, fever(s) , frequent falls, lethargy, stops breathing during sleep, weakness, weight gain , weight loss - EENT Eyes: Absent: blurry vision, loss of vision Nose, mouth and throat: Present: vertigo. Absent: dysphagia, nasal congestion, neck pain, sinus pressure, throat swelling - Cardiovascular Cardiovascular: Present: chest pain at rest (ART PSYCHOTHERAPIST; none current), lightheadedness (PTH; none currently). Absent: chest pain with activity, diaphoresis, dyspnea (ART PSYCHOTHERAPIST; none currently), dyspnea on exertion, edema, radiating jaw, neck or arm pain, orthopnea, palpitations, PND - Respiratory Respiratory: Absent: cough, hemoptysis, dyspnea on exertion, change in phlegm color - Gastrointestinal Gastrointestinal: Present: heartburn. Absent: abdominal pain, bloating, change in bowel habits, constipation, diarrhea, dysphagia, early satiety, melena, nausea, vomiting - Genitourinary Genitourinary: Absent: difficulty urinating, dysuria, flank pain, hematuria - Musculoskeletal Musculoskeletal: Present: arthralgias, myalgias - Neurological Neurological: Absent: abnormal gait, abnormal speech - Psychiatric Psychiatric: Absent: anxiety, confusion, depression - Endocrine Endocrine: Absent: cold intolerance, heat intolerance - Hematologic/Lymphatic Hematologic/Lymphatic: Absent: easy bleeding, easy bruising Medical,Surgical,& Family Hx - Medical History Cardio: History of: CAD, Hypertension No history of: Cardiac Dysrhythmia, CHF, [place], Pacemaker, PVD, Valvular Heart Disease Psychological: No history of: Anxiety Disorders, Depression Neurology: History of: Cerebrovascular Accident, Peripheral Neuropathy, Vertigo No history of: Migraine HEENT: History of: Dental Problems (Poor dentition) Endocrine: History of: Dyslipidemia No history of: Diabetes Mellitus (IDDM), Diabetes Mellitus (NIDDM), Thyroid Disorder Respiratory: No history of: Obstructive Sleep Apnea, Pulmonary Hypertension Renal: No history of: Renal Problems Gastrointestinal: History of: GERD No history of: Esophageal Varices, Gastrointestinal Bleed, Liver Problems, Pancreatitis Musculoskeletal: History of: Back/Neck Problems No history of: Osteoporosis Hematology: No history of: Anemia, Blood Transfusion Reaction, Bleeding Problems, Clotting Problems Other: No history of: Cancer, HIV - Surgical History Cardiac Surgeries: Sugical HX of: Cardiac Catheterization ([address] De Jesus) Patient Denies: Cardiac Surgery, Carotid Endarterectomy HEENT Surgeries: Patient denies: Carotid Endarterectomy Abdominal Surgeries: Surgical HX of: Appendectomy, Cholecystectomy Orthopedic Surgeries: Surgical HX of;: Orthopedic Surgery - Family History Family History: Reports;: Family Diabetes, Family Heart Disease, Family Hypertension - Social History Smoking Status: Former smoker Frequency of Alcohol Use: None Type of Drug Use: None Marital Status: Lives With:: Spouse Functional capacity: independent ambulation Physical Examination Vital Signs Temp Pulse Resp BP Pulse Ox 97.5 F L 63 18 129/68 97 01/16/17 12:04 01/16/17 12:04 01/16/17 12:04 01/16/17 12:04 01/16/17 12:04 General: Present: No Apparent Distress HEENT: Present: Normocephaly Neck: Present: Midline Trachea, No JVD/HJR, No Bruit Cardiac: Present: Reg Rate and Rhythm, Systolic Murmur Lungs: Present: Clear Ascult./Percussion, No Wheeze, Rales, Rhonchi. Absent: Oxygen Neuro: Present: Grossly Intact. Absent: Numbness, Tingling, Weakness, Resting Tremor, Essential Tremor Abdomen: Present: Soft, Active Bowel Sounds. Absent: Ascites, Tender, Firm, Distended Skin: Present: Clear. Absent: Rash, Suspicious Lesions, Bruising Musculoskeletal: Present: No Fluid Collection, Normal Range of Motion Extremities: Present: No Clubbing, No Cyanosis, Normal Upper Extr. Pulses (3+ bilaterally), Normal Lower Extr. Pulses (3+ bilaterally), Edema (Trace pretibial ), Capillary Refill (Normal), Other (Warm, dry, intact) Result/EKG - Labs CBC & BMP: 01/17/17 04:23 01/17/17 04:23 Lab Results: I have reviewed the past 24 hour labs Labs: Laboratory Results - last 24 hr 01/16/17 01/16/17 01/16/17 12:30 12:30 12:30 WBC 9.4 RBC 4.83 Hgb 14.4 Hct 41.4 L MCV 85.7 L MCH 30 MCHC 34.8 RDW 13.5 Plt Count 197 MPV 10.9 Neut % (Auto) 68.8 Lymph % (Auto) 19.6 L [place] % (Auto) 9.0 Eos % (Auto) 1.7 Baso % (Auto) 0.5 Neut # (Auto) 6.5 Lymph # (Auto) 1.9 [place] # (Auto) 0.9 H Eos # (Auto) 0.2 Baso # (Auto) 0.1 Immature Gran % 0.4 Nucleated RBC % 0.0 Immature Gran # 0.04 Nucleated RBCs # 0.00 INR PT Patient/Control Mix Sodium 140 Potassium 4.3 Chloride 109 H Carbon Dioxide 24 Anion Gap 11.3 BUN 13 Creatinine 0.70 GFR Calculation 150 BUN/Creatinine Ratio 18.00 Glucose 87 Hemoglobin A1c Calculated Osmolality 277.4 Calcium 8.3 L Magnesium 2.2 Total Creatine Kinase CK-MB (CK-2) Troponin I < 0.015 B-Natriuretic Peptide Triglycerides Cholesterol LDL Cholesterol VLDL Cholesterol HDL Cholesterol Heart Disease Risk Ratio TSH 3rd Generation Urine Color Urine Appearance Urine pH Ur Specific [place] Urine Protein Urine Glucose (UA) Urine Ketones Urine Blood Urine Nitrate Urine Bilirubin Urine Urobilinogen Urine Leukocytes Urine WBC Urine Mucus Ur Culture Indicated? 01/16/17 01/16/17 01/16/17 12:30 12:30 17:49 WBC RBC Hgb Hct MCV MCH MCHC RDW Plt Count MPV Neut % (Auto) Lymph % (Auto) [place] % (Auto) Eos % (Auto) Baso % (Auto) Neut # (Auto) Lymph # (Auto) [place] # (Auto) Eos # (Auto) Baso # (Auto) Immature Gran % Nucleated RBC % Immature Gran # Nucleated RBCs # INR 1.1 PT Patient/Control Mix 12.0 Sodium Potassium Chloride Carbon Dioxide Anion Gap BUN Creatinine GFR Calculation BUN/Creatinine Ratio Glucose Hemoglobin A1c Calculated Osmolality Calcium Magnesium Total Creatine Kinase CK-MB (CK-2) Troponin I B-Natriuretic Peptide 16 Triglycerides Cholesterol LDL Cholesterol VLDL Cholesterol HDL Cholesterol Heart Disease Risk Ratio TSH 3rd Generation Urine Color Yellow Urine Appearance Clear Urine pH 5.0 Ur Specific [place] 1.029 Urine Protein Negative Urine Glucose (UA) Negative Urine Ketones Negative Urine Blood Negative Urine Nitrate Negative Urine Bilirubin Negative Urine Urobilinogen < 2.0 H Urine Leukocytes Negative Urine WBC <1 Urine Mucus Few Ur Culture Indicated? Not indicated 01/16/17 01/17/17 01/17/17 21:59 01:11 04:23 WBC 12.4 H D RBC 4.54 Hgb 13.5 L Hct 38.8 L MCV 85.5 L MCH 30 MCHC 34.8 RDW 13.3 Plt Count 181 MPV 10.5 Neut % (Auto) 74.5 H Lymph % (Auto) 14.5 L [place] % (Auto) 8.3 Eos % (Auto) 1.4 Baso % (Auto) 0.5 Neut # (Auto) 9.2 H Lymph # (Auto) 1.8 [place] # (Auto) 1.0 H Eos # (Auto) 0.2 Baso # (Auto) 0.1 Immature Gran % 0.8 Nucleated RBC % 0.0 Immature Gran # 0.10 Nucleated RBCs # 0.00 INR PT Patient/Control Mix Sodium Potassium Chloride Carbon Dioxide Anion Gap BUN Creatinine GFR Calculation BUN/Creatinine Ratio Glucose Hemoglobin A1c Calculated Osmolality Calcium Magnesium Total Creatine Kinase 125 131 CK-MB (CK-2) < 1.0 < 1.0 Troponin I < 0.015 < 0.015 B-Natriuretic Peptide Triglycerides Cholesterol LDL Cholesterol VLDL Cholesterol HDL Cholesterol Heart Disease Risk Ratio TSH 3rd Generation Urine Color Urine Appearance Urine pH Ur Specific [place] Urine Protein Urine Glucose (UA) Urine Ketones Urine Blood Urine Nitrate Urine Bilirubin Urine Urobilinogen Urine Leukocytes Urine WBC Urine Mucus Ur Culture Indicated? 01/17/17 01/17/17 01/17/17 04:23 04:23 04:23 WBC RBC Hgb Hct MCV MCH MCHC RDW Plt Count MPV Neut % (Auto) Lymph % (Auto) [place] % (Auto) Eos % (Auto) Baso % (Auto) Neut # (Auto) Lymph # (Auto) [place] # (Auto) Eos # (Auto) Baso # (Auto) Immature Gran % Nucleated RBC % Immature Gran # Nucleated RBCs # INR PT Patient/Control Mix Sodium 141 Potassium 4.4 Chloride 109 H Carbon Dioxide 25 Anion Gap 11.4 BUN 14 Creatinine 0.90 GFR Calculation 135 BUN/Creatinine Ratio 15.00 Glucose 78 Hemoglobin A1c Calculated Osmolality 280.3 Calcium 8.3 L Magnesium Total Creatine Kinase 151 CK-MB (CK-2) < 1.0 Troponin I < 0.015 B-Natriuretic Peptide 9 Triglycerides 104 Cholesterol 108 LDL Cholesterol 66.0 VLDL Cholesterol 20.8 HDL Cholesterol 26 L Heart Disease Risk Ratio 4.15 TSH 3rd Generation 1.350 Urine Color Urine Appearance Urine pH Ur Specific [place] Urine Protein Urine Glucose (UA) Urine Ketones Urine Blood Urine Nitrate Urine Bilirubin Urine Urobilinogen Urine Leukocytes Urine WBC Urine Mucus Ur Culture Indicated? 01/17/17 04:23 WBC RBC Hgb Hct MCV MCH MCHC RDW Plt Count MPV Neut % (Auto) Lymph % (Auto) [place] % (Auto) Eos % (Auto) Baso % (Auto) Neut # (Auto) Lymph # (Auto) [place] # (Auto) Eos # (Auto) Baso # (Auto) Immature Gran % Nucleated RBC % Immature Gran # Nucleated RBCs # INR PT Patient/Control Mix Sodium Potassium Chloride Carbon Dioxide Anion Gap BUN Creatinine GFR Calculation BUN/Creatinine Ratio Glucose Hemoglobin A1c 5.5 Calculated Osmolality Calcium Magnesium Total Creatine Kinase CK-MB (CK-2) Troponin I B-Natriuretic Peptide Triglycerides Cholesterol LDL Cholesterol VLDL Cholesterol HDL Cholesterol Heart Disease Risk Ratio TSH 3rd Generation Urine Color Urine Appearance Urine pH Ur Specific [place] Urine Protein Urine Glucose (UA) Urine Ketones Urine Blood Urine Nitrate Urine Bilirubin Urine Urobilinogen Urine Leukocytes Urine WBC Urine Mucus Ur Culture Indicated? - Diagnostic Findings Procedure: Chest x-ray: image reviewed by me, report reviewed by me - EKG EKG results: interpreted by me, no acute changes EKG shows: sinus rhythm Julian Gaston Michael, MD, personally performed the services described in this documentation, ascribed by Lali Caballero RN in my presence, and it is both accurate and complete 348 .
--- NOTE | 2017-01-17 14:16 | ECHO Report ---
Praveen Del Valle Exam Date: 01/17/2017 08:23 Referring Physician: Technologist: Diana Crews Age: 36 Ht (in): 70 Wt (lb): 215 Gender: M Exam Location: [facility] Echo Indications: chest pain, HTN, CVA, dyslipidemia BP: 100 / 69 HR: 70 Rhythm: Sinus Technical Quality: IMPRESSIONS Normal left ventricular size and systolic function with left ventricular ejection fraction is estimated at 60-65%. No significant valvular disease is noted. MEASUREMENTS (Male / Female) Normal Values 2D ECHO LV Diastolic Diameter PLAX 4.3 cm 4.2 - 5.9 / 3.9 - 5.3 cm LV Systolic Diameter PLAX 2.0 cm LV Fractional Shortening PLAX 53.7 % IVS Diastolic Thickness 1.1 cm 0.6 - 1.0 / 0.6 - 0.9 cm LVPW Diastolic Thickness 1.1 cm 0.6 - 1.0 / 0.6 - 0.9 cm RV Internal Dim ED PLAX 2.9 cm Aortic Root Diameter 2.8 cm LA Systolic Diameter LX 3.6 cm 3.0 - 4.0 / 2.7 - 3.8 cm FINDINGS Left Ventricle Normal left ventricular size and systolic function with left ventricular ejection fraction is estimated at 60-65%. Right Ventricle Mildly increased right ventricular size. Right Atrium Normal right atrial size. Left Atrium Normal left atrial size. Mitral Valve Morphologically normal mitral valve. Aortic Valve The aortic valve is trileaflet, delicate and has normal motion. Tricuspid Valve Morphologically normal tricuspid valve. Pulmonic Valve Morphologically normal pulmonic valve. Trace pulmonary valve regurgitation. Pericardium No pericardial effusion. Aorta Normal size aortic root and proximal ascending aorta. Ayan Jordan (Electronically Signed) Final Date: 17 January 2017 14:15
== END 2017-01-17 14:38 | disposition home or self-care (01) ==
LOC: N.EDINP 12:04 → N.ED 12:04 → SUATTDRO 12:58 → N.EDINP 16:58 → N.2E 17:04
PROVIDERS: ADMIT Internal Medicine; ATTEND Internal Medicine Infectious Disease